=== PATIENT | female | born 1990 | race Caucasian/White ===

== ENCOUNTER 2021-09-28 08:22 | Emergency (ER) | payer MEDICAID ==
[~2021-09-28] VITALS: Ht 149.9 cm; Wt 69.1 kg
[2021-09-28 08:29] VITALS: BP 121/72
[2021-09-28 09:44] LABS: ALBUMIN 3.6 G/DL (3.4-5.0); BASOPHILS # (AUTO) 0.1 X10'3 (0-0.2); BASOPHILS % (AUTO) 0.9 % (0-1); BLOOD UREA NITROGEN 14 MG/DL (7-18); BUN/CREATININE RATIO 21.5 (6.6-38.0); CALCIUM 8.6 MG/DL (8.5-10.1); CHLORIDE 107 MMOL/L (99-107); CREATININE 0.65 MG/DL (0.40-0.90); EOSINOPHILS # (AUTO) 0.1 X10'3 (0-0.9); EOSINOPHILS % (AUTO) 1.4 % (0-6); GLUCOSE 94 MG/DL (70-104); HEMATOCRIT 41.6 % (35.0-45.0); HEMOGLOBIN 13.7 g/dl (12.0-16.0); LYMPHOCYTES # (AUTO) 1.4 X10'3 (1.1-4.8); LYMPHOCYTES % (AUTO) 21.4 % (21-51); MEAN CORPUSCULAR HEMOGLOBIN 26.6 PG (27.0-31.0); MEAN CORPUSCULAR HGB CONC 32.8 g/dL (33.0-36.5); MEAN CORPUSCULAR VOLUME 81.1 FL (78-98); MEAN PLATELET VOLUME 8.4 FL (7.4-10.4); MONOCYTES # (AUTO) 0.7 X10'3 (0-0.9); MONOCYTES % (AUTO) 11.4 % (2-12); NEUTROPHILS # (AUTO) 4.2 X10'3 (1.8-7.7); NEUTROPHILS % (AUTO) 64.9 % (42-75); PLATELET COUNT 217 X10'3 (140-440); RED BLOOD COUNT 5.13 X10'6 (4.20-5.60); RED CELL DISTRIBUTION WIDTH 14.7 % (11.5-14.5); SODIUM 141 MMOL/L (135-145); WHITE BLOOD COUNT 6.5 X10'3 (4.5-11.0); eGFR > 90 ML/MIN
[2021-09-28 09:45] LABS: ANION GAP 9 (8-16); TOTAL CARBON DIOXIDE 24.9 MMOL/L (24-32)
== END 2021-09-28 10:32 | disposition home or self-care (01) ==
LOC: ER 08:23
DX: L25.9 Unspecified contact dermatitis, unspecified cause (principal); Z88.1 Allergy status to other antibiotic agents; Z88.8 Allergy status to other drugs, medicaments and biological substances; Z79.899 Other long term (current) drug therapy
CPT/HCPCS: 36415; 80048; 85025; 99283

== ENCOUNTER 2022-11-03 16:31 | Emergency (ER) | payer MEDICAID ==
[~2022-11-03] VITALS: Ht 149.9 cm; Wt 78.2 kg
[2022-11-03 16:33] VITALS: BP 131/67
[2022-11-03] MEDS ORDERED: ketorolac tromethamine 15mg/ml inj. IM ONE (18:00)
== END 2022-11-03 19:35 | disposition home or self-care (01) ==
LOC: ER 16:31
DX: S93.402A Sprain of unspecified ligament of left ankle, initial encounter (principal); X58.XXXA Exposure to other specified factors, initial encounter; Y93.89 Activity, other specified; Y92.89 Other specified places as the place of occurrence of the external cause; Y99.8 Other external cause status
CPT/HCPCS: 29540; 73610; 73630; 96372; 99284; J1885; L1930; 29260

== ENCOUNTER 2023-02-23 14:21 | Emergency (ER) | payer MEDICAID ==
[~2023-02-23] VITALS: Ht 149.9 cm; Wt 75.3 kg
[2023-02-23 15:07] VITALS: BP 126/66; PULSE 81; RESP 18; TEMP 97.9; O2SAT 99
[2023-02-23] MEDS ORDERED: diphenhydrAMINE 50 mg/ml inj IM ONE (16:55)
[2023-02-23] MEDS ORDERED: methylPREDNISolone sod succ 125mg/2ml vial IM ONE (16:55)
[2023-02-24] MEDS ORDERED: FAMO-128 PO ×3 (15:16→15:17)
[2023-02-24] MEDS ORDERED: PRED20TA PO (15:17)
[2023-02-24] MEDS ORDERED: CETI-90 PO (15:21)
== END 2023-02-23 17:10 | disposition home or self-care (01) ==
LOC: ER 14:23
DX: L50.9 Urticaria, unspecified (principal); Z88.1 Allergy status to other antibiotic agents
CPT/HCPCS: 96372; 99284; J1200; J2930

== ENCOUNTER 2023-02-24 13:07 | Emergency (ER) | payer MEDICAID ==
[~2023-02-24] VITALS: Ht 149.9 cm; Wt 75.0 kg
[2023-02-24 13:39] VITALS: BP 116/56; PULSE 69; TEMP 97.8; O2SAT 99
[2023-02-24 14:08] VITALS: RESP 17
[2023-02-24] MEDS ORDERED: methylPREDNISolone sod succ 125mg/2ml vial IM ONE (15:00)
[2023-02-24] MEDS ORDERED: diphenhydrAMINE 50 mg/ml inj IM ONE (15:00)
[2023-02-24] MEDS ORDERED: famotidine 20mg tablet PO ONE (15:00)
[2023-02-24] MEDS ORDERED: FAMO-128 PO ×3 (15:16→15:17)
[2023-02-24] MEDS ORDERED: PRED20TA PO (15:17)
[2023-02-24] MEDS ORDERED: CETI-90 PO (15:21)
--- NOTE | 2023-02-24 19:11 | NUR ---
Pt. documentation completed by MATH TEACHER, reviewed and concur with MATH TEACHER.
[2023-02-25] MEDS ORDERED: cetirizine 10mg tablet PO SCH (08:00)
[2023-02-25] MEDS ORDERED: prednisone 10mg tablet PO SCH (08:30)
== END 2023-02-25 06:49 | disposition home or self-care (01) ==
LOC: ER 13:07
DX: T78.40XA Allergy, unspecified, initial encounter (principal); Z88.1 Allergy status to other antibiotic agents; Z88.8 Allergy status to other drugs, medicaments and biological substances
CPT/HCPCS: 96372; 99284; J1200; J2930

== ENCOUNTER 2023-02-27 10:45 | Emergency (ER) | payer MEDICAID ==
[~2023-02-27] VITALS: Ht 149.9 cm; Wt 75.8 kg
[~2023-02-27 10:45] MED LIST: CETI-90 PO; FAMO-128 PO; PRED20TA PO
[2023-02-27] MEDS ORDERED: diphenhydrAMINE 50 mg/ml inj IM ONE (13:40)
[2023-02-27] MEDS ORDERED: methylPREDNISolone sod succ 125mg/2ml vial IM ONE (13:40)
[2023-02-27] MEDS ORDERED: HYDR-3686 PO (13:42)
[2023-02-27] MEDS ORDERED: TRIA15CR61 TOP (13:42)
[2023-02-27 14:09] VITALS: BP 106/54; PULSE 70; RESP 18; TEMP 98.6; O2SAT 100
--- NOTE | 2023-02-27 15:40 | NUR ---
I have reviewed and agree with all interventions, assessments performed and documented by ARTIST AND REPERTOIRE MANAGER
== END 2023-02-27 14:11 | disposition home or self-care (01) ==
LOC: ER 10:46
DX: L50.9 Urticaria, unspecified (principal); Z88.1 Allergy status to other antibiotic agents; Z79.899 Other long term (current) drug therapy
CPT/HCPCS: 96372; 99284; J1200; J2930

== ENCOUNTER 2023-08-29 20:30 | Emergency (ER) | payer MEDICAID ==
[~2023-08-29] VITALS: Ht 149.9 cm; Wt 80.0 kg
[~2023-08-29 20:30] MED LIST changes: -PRED20TA PO
[2023-08-29 20:36] VITALS: BP 146/79; PULSE 73; RESP 16; TEMP 98.2; O2SAT 98
== END 2023-08-29 22:20 | disposition home or self-care (01) ==
LOC: ER 20:31
DX: S63.277A Dislocation of unspecified interphalangeal joint of left little finger, initial encounter (principal); Z79.2 Long term (current) use of antibiotics; Z88.8 Allergy status to other drugs, medicaments and biological substances; X58.XXXA Exposure to other specified factors, initial encounter; Y93.89 Activity, other specified; Y92.89 Other specified places as the place of occurrence of the external cause; Y99.8 Other external cause status
CPT/HCPCS: 73130; 99283

== ENCOUNTER 2024-03-08 10:10 | Emergency (ER) | payer MEDICAID ==
[~2024-03-08] VITALS: Ht 149.9 cm; Wt 79.5 kg
[2024-03-08 10:28] VITALS: TEMP 97.8
[2024-03-08 11:22] LABS: BASOPHILS % (AUTO) 0.6 % (0-1); EOSINOPHILS # (AUTO) 0.1 X10'3 (0-0.9); EOSINOPHILS % (AUTO) 0.9 % (0-6); HEMATOCRIT 44.1 % (35.0-45.0); HEMOGLOBIN 14.7 g/dl (12.0-16.0); LYMPHOCYTES # (AUTO) 1.7 X10'3 (1.1-4.8); LYMPHOCYTES % (AUTO) 22.4 % (21-51); MEAN CORPUSCULAR HEMOGLOBIN 27.1 PG (27.0-31.0); MEAN CORPUSCULAR HGB CONC 33.3 g/dL (33.0-36.5); MEAN CORPUSCULAR VOLUME 81.5 FL (78-98); MEAN PLATELET VOLUME 8.3 FL (7.4-10.4); MONOCYTES # (AUTO) 0.8 X10'3 (0-0.9); MONOCYTES % (AUTO) 10.2 % (2-12); NEUTROPHILS % (AUTO) 65.9 % (42-75); PLATELET COUNT 244 X10'3 (140-440); RED BLOOD COUNT 5.41 X10'6 (4.20-5.60); RED CELL DISTRIBUTION WIDTH 14.1 % (11.5-14.5); WHITE BLOOD COUNT 7.5 X10'3 (4.5-11.0)
[2024-03-08 11:35] LABS: ALANINE AMINOTRANSFERASE 12 U/L (12-78); ALBUMIN 3.9 G/DL (3.4-5.0); ALBUMIN/GLOBULIN RATIO 1.1 (1.1-1.5); ALKALINE PHOSPHATASE 68 IU/L (46-116); ANION GAP 9 (8-16); ASPARTATE AMINO TRANSFERASE 12 U/L (10-37); BILIRUBIN,TOTAL 0.7 MG/DL (0.1-1.0); BLOOD UREA NITROGEN 7 MG/DL (7-18); CALCIUM 8.9 MG/DL (8.5-10.1); CHLORIDE 105 MMOL/L (99-107); CREATININE 0.87 MG/DL (0.40-0.90); GLUCOSE 100 MG/DL (70-104); LIPASE 23 U/L (16-77); SODIUM 140 MMOL/L (135-145); TOTAL CARBON DIOXIDE 26.1 MMOL/L (24-32); TOTAL PROTEIN 7.6 G/DL (6.4-8.2); eCRCL 63 ML/MIN; eGFR 75 ML/MIN
[2024-03-08 11:47] LABS: BILIRUBIN,URINE NEGATIVE (Neg); CLARITY,URINE CLEAR (Clear); COLOR,URINE YELLOW (Yellow); GLUCOSE, URINE NEGATIVE (Neg); KETONES,URINE 15 mg/dl (Neg); LEUKOCYTE ESTERASE ,URINE NEGATIVE (Neg); NITRITES, URINE NEGATIVE (Neg); OCCULT BLOOD,URINE SMALL (Neg); PROTEIN,URINE NEGATIVE (Neg); UROBILINOGEN,URINE 0.2 E.U/dL (0.2-1.0)
[2024-03-08 11:50] LABS: URINE HCG NEGATIVE (NEG)
[2024-03-08 11:57] LABS: UA COLLECTION TYPE VOIDED
[2024-03-08 12:04] LABS: RBC,URINE 0-2 /HPF (0-2); SQUAMOUS EPITHELIAL CELL,UR MANY /LPF (FEW); WBC,URINE 0-4 /HPF (0-4)
[2024-03-08 12:05] LABS: BACTERIA,URINE 2+ /HPF (Neg)
[2024-03-08] MEDS: ondansetron 4mg rapidly disintigrating tab PO ONE (12:16)
[2024-03-08] MEDS: ketorolac trometh 15mg/ml vial 15 MG/ML ML IM ONE (13:06)
[2024-03-08 13:18] VITALS: BP 134/78; PULSE 68; RESP 16; O2SAT 99
== END 2024-03-08 13:21 | disposition home or self-care (01) ==
LOC: ER 10:10
DX: K81.0 Acute cholecystitis (principal); R10.9 Unspecified abdominal pain; Z88.1 Allergy status to other antibiotic agents; Z79.899 Other long term (current) drug therapy
CPT/HCPCS: 36415; 76700; 80053; 81001; 81025; 83690; 85025; 96372; 99285; J1885

== ENCOUNTER 2024-03-13 14:42 | Inpatient (IN) | payer MEDICAID ==
[~2024-03-13] VITALS: Ht 149.9 cm; Wt 77.7 kg
[2024-03-13 15:19] LABS: BASOPHILS % (AUTO) 0.4 % (0-1); EOSINOPHILS # (AUTO) 0.2 X10'3 (0-0.9); EOSINOPHILS % (AUTO) 2.8 % (0-6); HEMATOCRIT 43.2 % (35.0-45.0); HEMOGLOBIN 14.3 g/dl (12.0-16.0); LYMPHOCYTES # (AUTO) 1.4 X10'3 (1.1-4.8); LYMPHOCYTES % (AUTO) 16.5 % (21-51); MEAN CORPUSCULAR HEMOGLOBIN 27.2 PG (27.0-31.0); MEAN CORPUSCULAR HGB CONC 33.2 g/dL (33.0-36.5); MEAN CORPUSCULAR VOLUME 81.9 FL (78-98); MEAN PLATELET VOLUME 8.6 FL (7.4-10.4); MONOCYTES # (AUTO) 1.1 X10'3 (0-0.9); MONOCYTES % (AUTO) 12.6 % (2-12); NEUTROPHILS # (AUTO) 5.9 X10'3 (1.8-7.7); NEUTROPHILS % (AUTO) 67.7 % (42-75); PLATELET COUNT 255 X10'3 (140-440); RED BLOOD COUNT 5.27 X10'6 (4.20-5.60); RED CELL DISTRIBUTION WIDTH 14.2 % (11.5-14.5); WHITE BLOOD COUNT 8.7 X10'3 (4.5-11.0)
[2024-03-13 15:39] LABS: ALANINE AMINOTRANSFERASE 13 U/L (12-78); ALBUMIN 3.7 G/DL (3.4-5.0); ALBUMIN/GLOBULIN RATIO 1.1 (1.1-1.5); ALKALINE PHOSPHATASE 62 IU/L (46-116); ANION GAP 7 (8-16); ASPARTATE AMINO TRANSFERASE 15 U/L (10-37); BILIRUBIN,TOTAL 0.6 MG/DL (0.1-1.0); BLOOD UREA NITROGEN 9 MG/DL (7-18); CALCIUM 8.5 MG/DL (8.5-10.1); CHLORIDE 105 MMOL/L (99-107); CREATININE 0.82 MG/DL (0.40-0.90); GLUCOSE 97 MG/DL (70-104); LIPASE 33 U/L (16-77); POTASSIUM 3.8 MMOL/L (3.5-5.1); SODIUM 139 MMOL/L (135-145); TOTAL CARBON DIOXIDE 27.3 MMOL/L (24-32); TOTAL PROTEIN 7.2 G/DL (6.4-8.2); eCRCL 67 ML/MIN; eGFR 81 ML/MIN
[2024-03-13] MEDS: normal saline 1000ml 1,000 ML IV ONE (16:20)
[2024-03-13] MEDS: dicyclomine 10 MG capsule PO ONE (16:20)
[2024-03-13] MEDS: ondansetron/PF 4mg/2ml inj IV ONE (16:20)
[2024-03-13 16:24] LABS: URINE HCG NEGATIVE (NEG)
[2024-03-13 16:25] LABS: BILIRUBIN,URINE NEGATIVE (Neg); CLARITY,URINE SLIGHTLY CLOUDY (Clear); COLOR,URINE YELLOW (Yellow); GLUCOSE, URINE NEGATIVE (Neg); KETONES,URINE NEGATIVE (Neg); LEUKOCYTE ESTERASE ,URINE NEGATIVE (Neg); NITRITES, URINE NEGATIVE (Neg); OCCULT BLOOD,URINE TRACE-INTACT (Neg); PROTEIN,URINE NEGATIVE (Neg); UROBILINOGEN,URINE 0.2 E.U/dL (0.2-1.0)
[2024-03-13 16:31] LABS: SQUAMOUS EPITHELIAL CELL,UR MANY /LPF (FEW); UA COLLECTION TYPE CLN CATCH MIDSTREAM
[2024-03-13 16:34] LABS: AMORPHOUS PHOSPHATES 3+; BACTERIA,URINE FEW /HPF (Neg); WBC,URINE 0-4 /HPF (0-4)
[2024-03-13] MEDS ORDERED: acetaminophen 325mg tablet PO PRN (17:20)
[2024-03-13] MEDS: SINCALIDE IV ONE (17:20)
[2024-03-13] MEDS ORDERED: HYDROmorphone 1 mg/ml syringe IV PRN (17:20)
[2024-03-13] MEDS ORDERED: magnesium sulf-water 2g/50mL 50 ML IV PRN (17:20)
[2024-03-13] MEDS ORDERED: magnesium hydroxide 30ml (MOM) UD suspension PO PRN (17:20)
[2024-03-13] MEDS ORDERED: magnesium sulf-water 4G/100mL 100 ML IV PRN (17:20)
[2024-03-13] MEDS ORDERED: potassium Cl 20 mEq SR tablet PO PRN ×2 (17:20)
[2024-03-13] MEDS ORDERED: mag hydrox/Alum hydrox/simeth 30ml oral suspension PO PRN (17:20)
[2024-03-13] MEDS: NORMAL SALINE IV ONE (17:20)
[2024-03-13] MEDS ORDERED: potassium Cl 40MEQ/1/2NS 520ml 520 ML IV PRN (17:20)
[2024-03-13] MEDS ORDERED: ARIP5TAB12 PO (19:54)
[2024-03-13] MEDS ORDERED: CITA20TA19 PO (19:54)
[2024-03-13] MEDS ORDERED: SYN0.088T PO (19:54)
[2024-03-13] MEDS ORDERED: PROP40SO (19:54)
[2024-03-13] MEDS: K and/or MAG REPLACEMENT MC SCH (20:00)
[2024-03-13] MEDS: docusate sod 100mg capsule PO SCH (20:00)
[2024-03-13] MEDS: HYDROcodone/acetaminophen 10/325mg tab PO ONE (20:22)
[2024-03-13] MEDS: normal saline 1000ml 1,000 ML IV SCH (20:23)
[2024-03-13] MEDS: ondansetron/PF 4mg/2ml inj IV PRN (21:07)
[2024-03-14] VITALS (21 sets, daily range): BP systolic 92–140; BP diastolic 50–76; PULSE 64–86; RESP 12–20; TEMP 97–98.2; O2SAT 93–99
[2024-03-14] MEDS ORDERED: piperacillin/tazo 3.375gm/50ml 50 ML IV SCH
[2024-03-14] MEDS: HYDROmorphone inj. 0.5 MG/0.5 ML DISP.SYRIN IV PRN (02:25)
[2024-03-14 03:25] LABS: BASOPHILS # (AUTO) 0.1 X10'3 (0-0.2); BASOPHILS % (AUTO) 0.6 % (0-1); EOSINOPHILS # (AUTO) 0.3 X10'3 (0-0.9); EOSINOPHILS % (AUTO) 2.8 % (0-6); HEMATOCRIT 38.5 % (35.0-45.0); HEMOGLOBIN 12.7 g/dl (12.0-16.0); LYMPHOCYTES # (AUTO) 2.1 X10'3 (1.1-4.8); LYMPHOCYTES % (AUTO) 22.7 % (21-51); MEAN CORPUSCULAR HGB CONC 33.1 g/dL (33.0-36.5); MEAN CORPUSCULAR VOLUME 81.5 FL (78-98); MEAN PLATELET VOLUME 8.2 FL (7.4-10.4); MONOCYTES # (AUTO) 1.2 X10'3 (0-0.9); MONOCYTES % (AUTO) 12.6 % (2-12); NEUTROPHILS # (AUTO) 5.6 X10'3 (1.8-7.7); NEUTROPHILS % (AUTO) 61.3 % (42-75); PLATELET COUNT 210 X10'3 (140-440); RED BLOOD COUNT 4.72 X10'6 (4.20-5.60); RED CELL DISTRIBUTION WIDTH 14.1 % (11.5-14.5); WHITE BLOOD COUNT 9.2 X10'3 (4.5-11.0)
[2024-03-14 03:37] LABS: APTT 27 SECONDS (22-32); PROTHROMBIN TIME 10.6 SECONDS (9.0-12.0)
[2024-03-14 03:41] LABS: ALANINE AMINOTRANSFERASE 16 U/L (12-78); ALBUMIN 3.1 G/DL (3.4-5.0); ALKALINE PHOSPHATASE 53 IU/L (46-116); ANION GAP 10 (8-16); ASPARTATE AMINO TRANSFERASE 11 U/L (10-37); BILIRUBIN,TOTAL 0.5 MG/DL (0.1-1.0); BLOOD UREA NITROGEN 10 MG/DL (7-18); BUN/CREATININE RATIO 13.5 (10.0-20.0); CHLORIDE 109 MMOL/L (99-107); CREATININE 0.74 MG/DL (0.40-0.90); GLUCOSE 103 MG/DL (70-104); POTASSIUM 3.7 MMOL/L (3.5-5.1); SODIUM 141 MMOL/L (135-145); TOTAL PROTEIN 6.3 G/DL (6.4-8.2); eCRCL 74 ML/MIN; eGFR > 90 ML/MIN
[2024-03-14] MEDS: FLU VACC TS2024-25(6MOS UP)/PF 45 MCG/0.5 ML SYRINGE IMVAC ONE (07:25)
[2024-03-14] MEDS ORDERED: BUPIVAcaine 2.5mg/ml inj 50ml vial (contains preservative) ONE (17:34)
[2024-03-14] MEDS ORDERED: morphine 4 MG/ML inj SYRINge IV PRN (17:55)
[2024-03-14] MEDS ORDERED: enalaprilat dihydrate 2.5mg/2ml vial IV PRN (17:55)
[2024-03-14] MEDS ORDERED: labetalol 20mg/4ml (5mg/ml) syringe IV PRN (17:55)
[2024-03-14] MEDS ORDERED: proCHLORperazine 10 MG/2 ml inj IV PRN (17:55)
[2024-03-14] MEDS ORDERED: ringers solution, lacted 1,000 ML IV SCH (17:55)
[2024-03-14] MEDS ORDERED: ondansetron/PF 4mg/2ml inj IV PRN ×2 (17:55→19:30)
[2024-03-14] MEDS ORDERED: morphine 2 MG/ML inj. syringe IV PRN (17:55)
[2024-03-14] MEDS ORDERED: meperidine/PF 25mg/ml syringe IV PRN ×2 (17:55)
[2024-03-14] MEDS ORDERED: sevoflurane 250ml liquid IH ONE (18:03)
[2024-03-14] MEDS ORDERED: fentaNYL/PF 50MCG/1 ML 2ML syringe ONE (18:09)
[2024-03-14] MEDS ORDERED: midazolam 1 mg/ML 2ml injection ONE (18:09)
[2024-03-14] MEDS ORDERED: propofol inj 20 ML IV ONE (18:11)
[2024-03-14] MEDS ORDERED: LIDOcaine 2% (20mg/ml) 5ml vial ONE (18:11)
[2024-03-14] MEDS ORDERED: meperidine/PF 25mg/ml syringe ONE ×2 (18:11→18:26)
[2024-03-14] MEDS ORDERED: rocuronium 10mg/ml inj IV ONE (18:13)
[2024-03-14] MEDS ORDERED: dexamethasone sod phosphate 4mg/ml inj. ONE (18:24)
[2024-03-14] MEDS ORDERED: ceFOXitin 1000 MG inj ONE ×2 (18:33)
[2024-03-14] MEDS: BUPIVAcaine 0.25% w/Epi /PF 30ml vial IJ ONE (18:43)
[2024-03-14] MEDS: BUPIVAcaine 2.5mg/ml inj 50ml vial (contains preservative) SQ ONE (18:43)
[2024-03-14] MEDS ORDERED: neostigmine methylsulfate 1 MG/ML 10ml vial ONE (19:21)
[2024-03-14] MEDS ORDERED: ketorolac trometh 30MG/ML vial 30 MG/ML VIAL ONE (19:21)
[2024-03-14] MEDS ORDERED: naloxone 0.4 mg/ml inj IV PRN (19:30)
[2024-03-14] MEDS: meperidine/PF 25mg/ml syringe IV PRN (19:41)
[2024-03-15] VITALS (7 sets, daily range): BP systolic 118–126; BP diastolic 60–65; PULSE 76–95; RESP 14–20; TEMP 97.6–98.3; O2SAT 95–96
[2024-03-15] MEDS: ceFOXitin 1 GM/D5W 50mL IVPB 50 ML IV SCH (00:24)
[2024-03-15 06:11] LABS: BASOPHILS % (AUTO) 0.1 % (0-1); EOSINOPHILS % (AUTO) 0 % (0-6); HEMATOCRIT 41.8 % (35.0-45.0); HEMOGLOBIN 13.5 g/dl (12.0-16.0); LYMPHOCYTES # (AUTO) 0.6 X10'3 (1.1-4.8); LYMPHOCYTES % (AUTO) 3.9 % (21-51); MEAN CORPUSCULAR HEMOGLOBIN 26.4 PG (27.0-31.0); MEAN CORPUSCULAR HGB CONC 32.4 g/dL (33.0-36.5); MEAN CORPUSCULAR VOLUME 81.3 FL (78-98); MONOCYTES # (AUTO) 0.3 X10'3 (0-0.9); MONOCYTES % (AUTO) 1.8 % (2-12); NEUTROPHILS # (AUTO) 13.2 X10'3 (1.8-7.7); NEUTROPHILS % (AUTO) 94.2 % (42-75); PLATELET COUNT 235 X10'3 (140-440); RED BLOOD COUNT 5.13 X10'6 (4.20-5.60); RED CELL DISTRIBUTION WIDTH 14.2 % (11.5-14.5); WHITE BLOOD COUNT 14.1 X10'3 (4.5-11.0)
[2024-03-15 06:38] LABS: ALANINE AMINOTRANSFERASE 25 U/L (12-78); ALBUMIN 3.1 G/DL (3.4-5.0); ALBUMIN/GLOBULIN RATIO 0.9 (1.1-1.5); ALKALINE PHOSPHATASE 60 IU/L (46-116); ANION GAP 10 (8-16); ASPARTATE AMINO TRANSFERASE 29 U/L (10-37); BILIRUBIN,TOTAL 0.6 MG/DL (0.1-1.0); BLOOD UREA NITROGEN 6 MG/DL (7-18); BUN/CREATININE RATIO 7.9 (10.0-20.0); CALCIUM 7.8 MG/DL (8.5-10.1); CHLORIDE 104 MMOL/L (99-107); CREATININE 0.76 MG/DL (0.40-0.90); GLUCOSE 118 MG/DL (70-104); MAGNESIUM 1.7 MG/DL (1.5-2.4); POTASSIUM 4.2 MMOL/L (3.5-5.1); SODIUM 135 MMOL/L (135-145); TOTAL CARBON DIOXIDE 21.1 MMOL/L (24-32); TOTAL PROTEIN 6.6 G/DL (6.4-8.2); eCRCL 72 ML/MIN; eGFR 88 ML/MIN
[2024-03-15] MEDS: HYDROcodone/acetaminophen 5mg/325mg tablet PO PRN (10:24)
[2024-03-15] MEDS ORDERED: FLU VACC TS2024-25(6MOS UP)/PF 45 MCG/0.5 ML SYRINGE IMVAC ONE (12:25)
[2024-03-15] MEDS ORDERED: bisacodyl 10mg suppository rectal RC PRN (13:45)
[2024-03-15] MEDS: ketorolac trometh 30MG/ML vial 30 MG/ML VIAL IV PRN (19:22)
[2024-03-16] MEDS: polyethylene glycol 3350 17gm powd pack PO SCH (00:11)
[2024-03-16 06:00] VITALS: BP 125/63; PULSE 70; RESP 16; TEMP 98.4; O2SAT 96
[2024-03-16 06:01] LABS: BASOPHILS % (AUTO) 0.2 % (0-1); EOSINOPHILS # (AUTO) 0.1 X10'3 (0-0.9); EOSINOPHILS % (AUTO) 0.8 % (0-6); HEMATOCRIT 34.8 % (35.0-45.0); HEMOGLOBIN 11.7 g/dl (12.0-16.0); LYMPHOCYTES # (AUTO) 2.2 X10'3 (1.1-4.8); LYMPHOCYTES % (AUTO) 22.9 % (21-51); MEAN CORPUSCULAR HEMOGLOBIN 27.6 PG (27.0-31.0); MEAN CORPUSCULAR HGB CONC 33.6 g/dL (33.0-36.5); MEAN CORPUSCULAR VOLUME 82.1 FL (78-98); MEAN PLATELET VOLUME 8.7 FL (7.4-10.4); MONOCYTES # (AUTO) 0.9 X10'3 (0-0.9); MONOCYTES % (AUTO) 9.6 % (2-12); NEUTROPHILS # (AUTO) 6.3 X10'3 (1.8-7.7); NEUTROPHILS % (AUTO) 66.5 % (42-75); PLATELET COUNT 202 X10'3 (140-440); RED BLOOD COUNT 4.24 X10'6 (4.20-5.60); RED CELL DISTRIBUTION WIDTH 14.3 % (11.5-14.5); WHITE BLOOD COUNT 9.5 X10'3 (4.5-11.0)
[2024-03-16 06:24] LABS: ALANINE AMINOTRANSFERASE 31 U/L (12-78); ALBUMIN 2.7 G/DL (3.4-5.0); ALBUMIN/GLOBULIN RATIO 0.9 (1.1-1.5); ALKALINE PHOSPHATASE 46 IU/L (46-116); ANION GAP 11 (8-16); ASPARTATE AMINO TRANSFERASE 18 U/L (10-37); BILIRUBIN,TOTAL 0.5 MG/DL (0.1-1.0); BLOOD UREA NITROGEN 5 MG/DL (7-18); BUN/CREATININE RATIO 7.4 (10.0-20.0); CALCIUM 7.6 MG/DL (8.5-10.1); CHLORIDE 111 MMOL/L (99-107); CREATININE 0.68 MG/DL (0.40-0.90); GLUCOSE 94 MG/DL (70-104); MAGNESIUM 1.7 MG/DL (1.5-2.4); POTASSIUM 3.7 MMOL/L (3.5-5.1); SODIUM 143 MMOL/L (135-145); TOTAL CARBON DIOXIDE 21.4 MMOL/L (24-32); TOTAL PROTEIN 5.6 G/DL (6.4-8.2); eCRCL 81 ML/MIN; eGFR > 90 ML/MIN
[2024-03-16 08:00] VITALS: RESP 16; O2SAT 96
[2024-03-16 08:48] VITALS: RESP 16
[2024-03-16] MEDS ORDERED: ACET-1008 PO (17:09)
== END 2024-03-16 18:24 | disposition home or self-care (01) | DRG 263 ==
LOC: ER 14:43 → ED HOLD 17:26 → SUR 3N 03-14 01:36
PROVIDERS: ADMIT Family Medicine; ATTEND Family Medicine
PROC: CF1C1ZZ Planar Nuclear Medicine Imaging of Hepatobiliary System, All using Technetium 99m (Tc-99m) (ICD-10-PCS; 2024-03-13)
PROC: 8E0W4CZ Robotic Assisted Procedure of Trunk Region, Percutaneous Endoscopic Approach (ICD-10-PCS; 2024-03-14)
PROC: 0FT44ZZ Resection of Gallbladder, Percutaneous Endoscopic Approach (ICD-10-PCS; principal; 2024-03-14 18:03)
DX: K80.20 Calculus of gallbladder without cholecystitis without obstruction (principal); Z79.899 Other long term (current) drug therapy; Z87.891 Personal history of nicotine dependence; Z88.1 Allergy status to other antibiotic agents; Z90.49 Acquired absence of other specified parts of digestive tract; Z82.49 Family history of ischemic heart disease and other diseases of the circulatory system; Z83.79 Family history of other diseases of the digestive system
CPT/HCPCS: 36415; 76700; 78226; 80053; 81001; 81025; 82948; 83690; 83735; 84145; 85025; 85610; 85651; 85730; 87081; 90686; 99291; A4215; A4618; A6212; A6223; A6449; A6590; A7000; A9537; C1758; G0378; J0694; J1100; J1171; J1885; J2003; J2175; J2250; J2405; J2704; J2710; J3010; J3490; J7030; J7120; S0020

== ENCOUNTER 2024-09-10 16:42 | Emergency (ER) | payer MEDICAID ==
[~2024-09-10] VITALS: Ht 149.9 cm; Wt 74.8 kg
[~2024-09-10 16:42] MED LIST changes: +ACET-1008 PO; +ARIP5TAB12 PO; -CETI-90 PO; +CITA20TA19 PO; -FAMO-128 PO; +PROP40SO; +SYN0.088T PO
[2024-09-10 16:44] VITALS: BP 133/66; PULSE 74; RESP 15; O2SAT 99
--- NOTE | 2024-09-10 17:05 | Physician Documentation ---
History of Present Illness ~ Chief Complaint: Sore Throat Stated Complaint: SORE THROAT Time Seen by MD: 17:01 Primary Medical Doctor: CHRISTELLE HOOD HPI 34-year-old female presents to the emergency department with sore throat, made much worse with swallowing. She denies chills or fever, has had some cough and congestion. Medication Reconciliation Allergies: Coded Allergies: amoxicillin (Unverified Allergy, Mild, rash, 03/08/24) levofloxacin (Unverified Allergy, Mild, rash, 03/08/24) Scheduled Aripiprazole* (Abilify*), 15 MG PO DAILY, (Reported) Citalopram Hydrobromide (Celexa), 1 TAB PO DAILY, (Reported) Levothyroxine Sodium* (Synthroid*), 1 TAB PO DAILY, (Reported) Lidocaine HCl (Lidocaine HCl Viscous), 15 ML PO Q4H Scheduled PRN Acetaminophen (Tylenol), 1 TAB PO Q4HPRN PRN for pain or fever, (Reported) Miscellaneous Medications Propranolol HCl (Propranolol HCl), (Reported) Past Medical History Past Medical History: No Pertinent History Patient History: Cholelithiasis MOTHER FH: congestive heart failure maternal grandmother FH: diabetes mellitus FATHER FH: hypertension FATHER MOTHER Review of Systems ROS As stated above in the HPI, otherwise all systems are reviewed and negative. Physical Exam Vital Signs: Temperature: 98.3, Source: Oral, Heart Rate: 74, Respiratory Rate: 15, BP: 133/66, Pulse Oximetry: 99, Weight: 74.800 Oxygen Flow Rate: 0 Physical Exam General: Alert, no apparent distress. HEENT: PERRL, EOMI, no injection, moist mucous membranes. Uvula midline. Moderate posterior pharyngeal erythema with vesicular lesions noted. Tonsils not enlarged or exudative. Neck: Full range of motion. Respiratory: Lungs clear, no respiratory distress. Chest: No accessory muscle use. Cardiovascular: Regular rate and rhythm, no murmurs. Gastrointestinal: Soft, nontender, nondistended. Bowels sounds present. Extremities: Normal range of motion, no deformity. Neurologic: Oriented x4. Psychiatric: Normal mood and affect. Skin: Normal color, warm and dry. No edema, no ecchymosis. Progress Results/Orders Results/Orders Orders - LATOYA SAUL NP Lidocaine 2% Viscous (Xylocaine 2% Visco (09/10/24 17:25) Completed Orders - LATOYA SAUL NP Dexamethasone 6mg Tablet (Dexamethasone (09/10/24 17:25) Ibuprofen Tablet (Motrin Tablet) (09/10/24 17:25) Dexamethasone 6mg Tablet (Dexamethasone (09/10/24 17:25) Vital Signs 09/10/24 16:44 Temp 98.3 Pulse 74 Resp 15 B/P (MAP) 133/66 Pulse Ox 99 O2 Flow Rate 0 Medical Decision Making Additional Comment Well-appearing 34-year-old female with evidence of herpangina on physical exam. Airway patent with uvula is visible on midline. No rashes. Patient is instructed in care of viral illness and told to return if worse Departure Time of Disposition: 17:24 Disposition: 01 HOME / SELF CARE / HOMELESS Impression: Primary Impression: Acute herpangina Condition: Stable Discharge Instructions: Hand, Foot, and Mouth Disease, Adult Additional Instructions: Wear a mask around others. Take Tylenol and Ibuprofen per label instructions as needed for pain. Gargle with the lidocaine every 4 hrs as needed for pain. Drink plenty of fluids, return if worse. Referrals: NO PRIMARY CARE PROVIDER (PCP) Prescriptions Lidocaine HCl (Lidocaine HCl Viscous) 2 % Solution 15 ML PO Q4H for mouth sore pain for 1 Day, #100 ML 0 Refills Prov: LATOYA SAUL NP 09/10/24 Education Educated: Patient, Family Educated regarding: diagnosis, treatment, prognosis, need for follow up Signature Scribe Signature: no scribe Attestation: The note accurately reflects work and decisions made by me.Latoya Saul - BRE 09/10/24 17:30 LATOYA SAUL NP September 10, 2024 17:05
[2024-09-10] MEDS ORDERED: DEXAMETHASONE 6 MG TABLET PO SCH (17:25)
[2024-09-10] MEDS ORDERED: LIDO15SO9 PO (17:26)
[2024-09-10] MEDS: DEXAMETHASONE 6 MG TABLET PO ONE (17:43)
[2024-09-10] MEDS: ibuprofen tablet 400 MG TABLET PO ONE (17:43)
[2024-09-10] MEDS: LIDOcaine 2% Viscous 15ml cup MM PRN (17:43)
[2024-09-10 17:46] VITALS: TEMP 98.3
== END 2024-09-10 17:52 | disposition home or self-care (01) ==
LOC: ER 16:42
DX: B08.5 Enteroviral vesicular pharyngitis (principal); Z88.0 Allergy status to penicillin; Z88.1 Allergy status to other antibiotic agents
CPT/HCPCS: 99284; J8540

== ENCOUNTER 2024-12-21 08:08 | Emergency (ER) | payer MEDICAID ==
[~2024-12-21] VITALS: Ht 149.9 cm; Wt 68.4 kg
[~2024-12-21 08:08] MED LIST changes: +LIDO15SO9 PO
[2024-12-21 08:16] VITALS: TEMP 98.7
--- NOTE | 2024-12-21 09:50 | Physician Documentation ---
History of Present Illness ~ Chief Complaint: Bite-animal Stated Complaint: CAT BITE Time Seen by MD: 09:29 Primary Medical Doctor: [facility] HPI Patient is a 34-year-old female that presents to the emergency department for evaluation of cat bites sustained to the left hand and neck this morning. She reports that she was holding her cat when her dog but the cat's tail causing the cat to become alarmed and bite the patient. Patient reports animals are vaccinated. She has not have any indication rabies. Patient reports she is not up-to-date on her tetanus and would like a tetanus shot while she is here. No other concerns reported at this time. Tetanus within 5 years?: No Medication Reconciliation Allergies: Coded Allergies: amoxicillin (Unverified Allergy, Mild, rash, 12/21/24) levofloxacin (Unverified Allergy, Mild, rash, 12/21/24) Scheduled Aripiprazole* (Abilify*), 15 MG PO DAILY, (Reported) Citalopram Hydrobromide (Celexa), 1 TAB PO DAILY, (Reported) Levothyroxine Sodium* (Synthroid*), 1 TAB PO DAILY, (Reported) Lidocaine HCl (Lidocaine HCl Viscous), 15 ML PO Q4H Scheduled PRN Acetaminophen (Tylenol), 1 TAB PO Q4HPRN PRN for pain or fever, (Reported) Miscellaneous Medications Propranolol HCl (Propranolol HCl), (Reported) Past Medical History Past Medical History: No Pertinent History Patient History: Cholelithiasis MOTHER FH: congestive heart failure maternal grandmother FH: diabetes mellitus FATHER FH: hypertension FATHER MOTHER Review of Systems ROS As stated above in the HPI, otherwise all systems are reviewed and negative. Physical Exam Vital Signs: Temperature: 98.7, Source: Temporal, Heart Rate: 94, Respiratory Rate: 16, BP: 134/65, Pulse Oximetry: 100, Weight: 68.400 Oxygen Flow Rate: 0 Physical Exam VITALS: Reviewed and as above. GENERAL: Alert, no apparent distress. HEENT: Normocephalic, atraumatic, PERRL, EOMI, dry mucosa, no erythema RESPIRATORY: Lungs clear, normal breath sounds, no respiratory distress. CHEST: No accessory muscle use, no retractions CV: Regular rate, rhythm, no edema, no murmur, No: JVD GI: Soft, non-tender, bowels sounds present, no rebound, guarding, or rigidity BACK: No CVA tenderness, or swelling MUSCULOSKELETAL No deformities, no edema SKIN: Warm and dry, small cat bites noted to the 1st digit on the left hand 2 small punctures noted to the soft tissue of the neck. No indication of infection at this time. NEURO: Oriented x4, No motor or sensory deficit PSYCH: Normal mood and affect, no agitation Progress Results/Orders Results/Orders Vital Signs 12/21/24 08:16 Temp 98.7 Pulse 94 Resp 16 B/P (MAP) 134/65 Pulse Ox 100 O2 Flow Rate 0 Medical Decision Making Findings This patient presents with initial presentation we will small cat bites to the 1st digit on the left hand 2 small punctures on the neck. No erythema warmth or signs of infection noted at this time. No lymphangitic spread visible and no fluid pockets or fluctuance concerning for abscess noted. No immune compromise, bullae, pain out of proportion, or rapid progression concerning for necrotizing fasciitis. Patient to be discharged home with doxycycline with follow up with their PMD. Patient will return to the emergency department with any worsening or recurrent symptoms or any additional concerning symptoms that we discussed here today i.e. fever chills purulent drainage from the wounds or any other concerning symptoms. Differential Dx:Considerations: Include: Abrasion, Allergic reaction, Anaphylaxis, Cellulitis, Contusion, Fracture, Hematoma, Insect envenomation, Laceration, Neurovascular injury, Punture wound, Retained foreign body, Urticaria, Other Departure Disposition: 01 HOME / SELF CARE / HOMELESS Impression: Primary Impression: Cat bite Additional Impression: Abdominal pain Condition: Stable Additional Instructions: This patient presents with initial presentation we will small cat bites to the 1st digit on the left hand 2 small punctures on the neck. No erythema warmth or signs of infection noted at this time. No lymphangitic spread visible and no fluid pockets or fluctuance concerning for abscess noted. No immune compromise, bullae, pain out of proportion, or rapid progression concerning for necrotizing fasciitis. Patient to be discharged home with doxycycline with follow up with their PMD. Patient will return to the emergency department with any worsening or recurrent symptoms or any additional concerning symptoms that we discussed here today i.e. fever chills purulent drainage from the wounds or any other concerning symptoms. Referrals: NO PRIMARY CARE PROVIDER (PCP) Prescriptions Doxycycline Hyclate (Doxycycline Hyclate) 100 Mg Capsule 1 CAP PO Q12H for 10 Days, #20 CAP Prov: ALLYN DAIGLE 12/21/24 Education Educated: Patient Educated regarding: diagnosis, treatment, need for follow up Signature Scribe Signature: A Attestation: Scribed for Allyn Daigle by ARINA Morales . 12/21/24 09:51 ALLYN DAIGLE Dec 21, 2024 09:50
[2024-12-21] MEDS ORDERED: DOXY-1 PO (09:51)
[2024-12-21 10:11] VITALS: BP 118/55; PULSE 71; RESP 16; O2SAT 100
[2024-12-22] MEDS ORDERED: IBUP-864 PO (09:09)
== END 2024-12-21 10:12 | disposition home or self-care (01) ==
LOC: ER 08:08
DX: S61.452A Open bite of left hand, initial encounter (principal); S11.95XA Open bite of unspecified part of neck, initial encounter; Z88.1 Allergy status to other antibiotic agents; Z79.899 Other long term (current) drug therapy; W55.01XA Bitten by cat, initial encounter; Y93.89 Activity, other specified; Y92.89 Other specified places as the place of occurrence of the external cause; Y99.8 Other external cause status
CPT/HCPCS: 99283

== ENCOUNTER 2024-12-22 08:46 | Emergency (ER) | payer MEDICAID ==
[~2024-12-22] VITALS: Ht 160 cm; Wt 68.5 kg
[~2024-12-22 08:46] MED LIST changes: +DOXY-1 PO
[2024-12-22 08:52] VITALS: BP 126/63; PULSE 95; RESP 16; O2SAT 100
[2024-12-22] MEDS ORDERED: IBUP-864 PO (09:09)
--- NOTE | 2024-12-22 09:10 | Physician Documentation ---
History of Present Illness ~ Chief Complaint: Bite-animal Stated Complaint: CAT BITE RECHECK Time Seen by MD: 08:57 Primary Medical Doctor: [facility] Source: patient Mode of Arrival: POV Exam Limitations: no limitations HPI 34-year-old female came in after starting antibiotics and being seen in the ER for a cat bite to her right hand that occurred 2 days ago. Patient states that it feels like the pain is worsening and some swelling that extends into the hand. Patient started on doxy yesterday Tetanus within 5 years?: No Medication Reconciliation Allergies: Coded Allergies: amoxicillin (Unverified Allergy, Mild, rash, 12/21/24) levofloxacin (Unverified Allergy, Mild, rash, 12/21/24) Scheduled Aripiprazole* (Abilify*), 15 MG PO DAILY, (Reported) Citalopram Hydrobromide (Celexa), 1 TAB PO DAILY, (Reported) Doxycycline Hyclate (Doxycycline Hyclate), 1 CAP PO Q12H Levothyroxine Sodium* (Synthroid*), 1 TAB PO DAILY, (Reported) Lidocaine HCl (Lidocaine HCl Viscous), 15 ML PO Q4H Scheduled PRN Acetaminophen (Tylenol), 1 TAB PO Q4HPRN PRN for pain or fever, (Reported) Miscellaneous Medications Propranolol HCl (Propranolol HCl), (Reported) Past Medical History Past Medical History: No Pertinent History Patient History: Cholelithiasis MOTHER FH: congestive heart failure maternal grandmother FH: diabetes mellitus FATHER FH: hypertension FATHER MOTHER Review of Systems All Other Systems at this time: Reviewed and Negative Integumentary: Reports: see HPI Physical Exam Vital Signs: Temperature: 98.3, Source: Temporal, Heart Rate: 95, Respiratory R ate: 16, BP: 126/63, Pulse Oximetry: 100, Weight: 68.500 General Appearance: alert, WD/WN, no apparent distress Cardiovascular: normal peripheral pulses, regular rate, rhythm, no edema Respiratory: lungs clear, normal breath sounds, no respiratory distress Chest: no accessory muscle use; No: retractions Skin Erythema to the distal portion of the thumb with puncture wounds mild swelling puncture wounds to the index finger of the right hand minimal erythema and swelling no erythema to the dorsum of the right hand pain with movement sensation and circulation intact Progress Results/Orders Results/Orders Vital Signs 8/22/25 08:52 Temp 98.3 Pulse 95 Resp 16 B/P (MAP) 126/63 Pulse Ox 100 Medical Decision Making Findings Cat bite recently started doxy approximately 24 hours ago. Compartments soft. Patient will continue doxycycline more concerned with pain has been taking [id number] ibuprofen and is supposed to go to work tomorrow. Requiring work note Departure Time of Disposition: 09:08 Disposition: 01 HOME / SELF CARE / HOMELESS Impression: Primary Impression: Cat bite Qualified Codes: W55.01XD - Bitten by cat, subsequent encounter Condition: Stable Additional Instructions: Continue to take antibiotics monitored it can take another 24 hours to reduce some swelling monitor for any new or worsening symptoms and feel free to return to the ER Departure Forms: Excuse form Work or School Excused From: Work Excuse beginning now through the following date: Dec 25, 2024 Referrals: NO PRIMARY CARE PROVIDER (PCP) Prescriptions Ibuprofen (Ibu) 800 Mg Tablet 1 TAB PO Q8H for 7 Days, #21 TAB 0 Refills Prov: INGRID PAEZ NP 12/22/24 Education Educated: Patient Educated regarding: diagnosis, treatment, need for follow up Signature Scribe Signature: No scribe Attestation: The note accurately reflects work and decisions made by me.Ingrid SANTA 12/22/24 09:10 INGRID PAEZ NP Dec 22, 2024 09:10
[2024-12-22 09:21] VITALS: TEMP 98.3
== END 2024-12-22 09:22 | disposition home or self-care (01) ==
LOC: ER 08:46
DX: S61.230A Puncture wound without foreign body of right index finger without damage to nail, initial encounter (principal); Z88.1 Allergy status to other antibiotic agents; Z79.899 Other long term (current) drug therapy; W55.01XA Bitten by cat, initial encounter; Y93.89 Activity, other specified; Y92.89 Other specified places as the place of occurrence of the external cause; Y99.8 Other external cause status
CPT/HCPCS: 99282